=== PATIENT | female | born 1985 | race Asian ===

== ENCOUNTER 2017-09-18 21:05 | Inpatient (IN) | payer OTHER ==
[~2017-09-18] VITALS: Ht 165.1 cm; Wt 74.4 kg
[2017-09-18] MEDS ORDERED: PROMETHAZINE 25 MG/ML VIAL IVP PRN (21:40)
[2017-09-18] MEDS ORDERED: CARBOPROST 250 MCG/ML AMP IM PRN (21:40)
[2017-09-18] MEDS ORDERED: METHYLERGONOVINE 0.2 MG/ML AMP IM PRN (21:40)
[2017-09-18] MEDS ORDERED: NALBUPHINE HYDROCHLORIDE 10 MG/ML VIAL IVP PRN (21:40)
[2017-09-18] MEDS ORDERED: OXYTOCIN 10 UNITS/ML VIAL IM SCH (21:40)
[2017-09-18 22:36] LABS: BASOPHILS # (AUTO) 0.1 K/uL (0.00-0.22); BASOPHILS % (AUTO) 1.2 % (0.0-2.0); EOSINOPHILS # (AUTO) 0.1 K/uL (0-0.4); EOSINOPHILS % (AUTO) 0.9 % (0.0-4.0); HEMATOCRIT 35.6 % (36-48); HEMOGLOBIN 11.9 g/dL (12.0-16.0); LYMPHOCYTES # (AUTO) 1.2 K/uL (2.5-16.5); LYMPHOCYTES % (AUTO) 12.6 % (20.5-51.1); MEAN CORPUSCULAR HEMOGLOBIN 31 pg (27-31); MEAN CORPUSCULAR HGB CONC 33 g/dL (33-37); MEAN CORPUSCULAR VOLUME 93 fL (80-94); MONOCYTES # (AUTO) 0.6 K/uL (0.8-1.0); MONOCYTES % (AUTO) 6.2 % (1.7-9.3); NEUTROPHILS # (AUTO) 7.7 K/uL (1.8-7.7); NEUTROPHILS % (AUTO) 79.1 % (42.2-75.2); PLATELET COUNT (AUTO) 185 K/uL (140-450); RED BLOOD CELL COUNT(AUTO) 3.83 MIL/uL (4.20-5.40); RED CELL DISTRIBUTION WIDTH 12.5 % (11.6-13.7); WHITE BLOOD COUNT (AUTO) 9.7 K/uL (4.8-10.8)
[2017-09-18 22:54] LABS: ALBUMIN 3.1 g/dL (3.4-5.0); ANION GAP 15.2 (8-16); CARBON DIOXIDE 23.6 mmol/L (21-32); CREATININE 0.6 mg/dL (0.6-1.3); POTASSIUM 3.8 mmol/L (3.5-5.1); TOTAL BILIRUBIN 0.2 mg/dL (0.0-1.0)
[2017-09-18] MEDS ORDERED: OXYTOCIN 20 UNITS/LR PREMIX 1,000 ML IV ONE (23:29)
[2017-09-19 00:17] VITALS: BP 119/61
[2017-09-19] MEDS ORDERED: PREN-546 PO (00:31)
[2017-09-19] MEDS ORDERED: FERR-252 PO (00:32)
[2017-09-19] MEDS ORDERED: ROPIVACAINE 0.2%/NS PREMIX 250 ML EPI ONE (02:36)
--- NOTE | 2017-09-19 06:42 | NUR ---
PATIENT HAS BEEN SCREENED AND CATEGORIZED LOW NUTRITION RISK. PATIENT WILL BE SEEN WITHIN 7 DAYS OF ADMISSION. 09/25/17 JOHN RAMIREZ MS, RDN
[2017-09-19 09:43] LABS: APPEARANCE,URINE CLEAR (CLEAR); BILIRUBIN,URINE NEGATIVE (NEGATIVE); BLOOD, URINE NEGATIVE (NEGATIVE); COLOR,URINE YELLOW (YELLOW); LEUKOCYTE ESTERASE ,URINE NEGATIVE (NEGATIVE); NITRITE, URINE NEGATIVE (NEGATIVE); PH,URINE 6.5 (5.0-9.0); UGLUCOSE NEGATIVE (NEGATIVE)
[2017-09-19] MEDS ORDERED: TERBUTALINE 1 MG/ML VIAL SUBQ ONE (10:36)
[2017-09-19] MEDS ORDERED: OXYTOCIN 20 UNITS in LACTATED RINGERS 1,000 ML IV SCH ×2 (10:53→11:33)
[2017-09-19] MEDS ORDERED: oxyCODONE/APAP 5/325 MG 1 TAB TAB PO PRN (10:55)
[2017-09-19] MEDS ORDERED: TRIMETHOBENZAMIDE 200 MG/2 ML SYR IM PRN (10:55)
[2017-09-19] MEDS ORDERED: MEASLES, MUMPS, AND RUBELLA 1 VIAL SQVAC PRN (10:55)
[2017-09-19] MEDS ORDERED: TEMAZEPAM 15 MG CAP PO PRN (10:55)
[2017-09-19] MEDS ORDERED: METHYLERGONOVINE 0.2 MG/ML AMP IM PRN (10:55)
[2017-09-19] MEDS ORDERED: IBUPROFEN 800 MG TAB PO PRN (10:55)
[2017-09-19] MEDS ORDERED: METOCLOPRAMIDE 10 MG/2 ML INJ VIAL ONE (11:15)
[2017-09-19] MEDS ORDERED: ONDANSETRON 4 MG/2 ML VIAL ONE (11:15)
[2017-09-19] MEDS ORDERED: OXYTOCIN 10 UNITS/ML VIAL ONE (11:18)
[2017-09-19] MEDS ORDERED: TRIAMCINOLONE 40 MG/ML 5ML VIAL ONE (11:18)
[2017-09-19] MEDS ORDERED: MORPHINE PRES FREE 10 MG/10 ML AMP IV ONE (11:20)
[2017-09-19] MEDS ORDERED: diphenhydrAMINE 50 MG/ML VIAL IVP PRN (11:35)
[2017-09-19] MEDS ORDERED: NALOXONE 0.4 MG/ML VIAL IVP PRN ×2 (11:35)
[2017-09-19] MEDS ORDERED: ONDANSETRON 4 MG/2 ML VIAL IVP PRN (11:35)
[2017-09-19] MEDS: KETOROLAC 30 MG/ML VIAL IVP PRN (13:16)
[2017-09-19] MEDS ORDERED: DOCUSATE SOD/SENNA 50/8.6 MG 1 TAB PO SCH (21:00)
[2017-09-20] MEDS ORDERED: OXYTOCIN 10 UNITS/ML VIAL ONE (01:42)
[2017-09-20 07:42] LABS: BASOPHILS # (AUTO) 0.1 K/uL (0.00-0.22); BASOPHILS % (AUTO) 0.8 % (0.0-2.0); EOSINOPHILS # (AUTO) 0.1 K/uL (0-0.4); EOSINOPHILS % (AUTO) 0.6 % (0.0-4.0); HEMATOCRIT 31.8 % (36-48); HEMOGLOBIN 10.4 g/dL (12.0-16.0); LYMPHOCYTES # (AUTO) 0.8 K/uL (2.5-16.5); LYMPHOCYTES % (AUTO) 6.7 % (20.5-51.1); MEAN CORPUSCULAR HEMOGLOBIN 31 pg (27-31); MEAN CORPUSCULAR HGB CONC 33 g/dL (33-37); MEAN CORPUSCULAR VOLUME 93 fL (80-94); MONOCYTES # (AUTO) 0.7 K/uL (0.8-1.0); NEUTROPHILS # (AUTO) 10.5 K/uL (1.8-7.7); NEUTROPHILS % (AUTO) 85.9 % (42.2-75.2); PLATELET COUNT (AUTO) 159 K/uL (140-450); RED BLOOD CELL COUNT(AUTO) 3.41 MIL/uL (4.20-5.40); RED CELL DISTRIBUTION WIDTH 13.1 % (11.6-13.7); WHITE BLOOD COUNT (AUTO) 12.2 K/uL (4.8-10.8)
[2017-09-20] MEDS: SIMETHICONE 80 MG TAB.CHEW PO PRN ×2 (08:19→17:26)
[2017-09-20] MEDS: KETOROLAC 30 MG/ML VIAL IVP PRN (08:23)
[2017-09-21] MEDS: HYDROcodone/APAP 5/325 MG 1 TAB TAB PO PRN ×2 (03:27→13:52)
[2017-09-21] MEDS ORDERED: INFLUENZA VIRUS VACCINE QUAD 0.5 ML SYR IMVAC SCH (09:00)
[2017-09-22] MEDS: HYDROcodone/APAP 5/325 MG 1 TAB TAB PO PRN (06:05)
== END 2017-09-22 10:20 | disposition home or self-care (01) | DRG 540 ==
LOC: MLD 21:05 → MFCC 09-19 12:30
PROVIDERS: ADMIT Obstetrics & Gynecology; ATTEND Obstetrics & Gynecology
PROC: 3E0P3VZ Introduction of Hormone into Female Reproductive, Percutaneous Approach (ICD-10-PCS; 2017-09-19)
PROC: 10D00Z1 Extraction of Products of Conception, Low, Open Approach (ICD-10-PCS; principal; 2017-09-19 11:15)
PROC: 3E0234Z Introduction of Serum, Toxoid and Vaccine into Muscle, Percutaneous Approach (ICD-10-PCS; 2017-09-20)
PROC: 3E0234Z Introduction of Serum, Toxoid and Vaccine into Muscle, Percutaneous Approach (ICD-10-PCS; 2017-09-20)
DX: O76 Abnormality in fetal heart rate and rhythm complicating labor and delivery (principal); O32.4XX0 Maternal care for high head at term, not applicable or unspecified; O89.4 Spinal and epidural anesthesia-induced headache during the puerperium; O77.0 Labor and delivery complicated by meconium in amniotic fluid; Z37.0 Single live birth; Z3A.40 40 weeks gestation of pregnancy; Z23 Encounter for immunization
CPT/HCPCS: 36415; 80053; 81003; 85025; 86592; 86762; 86886; 86900; 86901; 87340; 90715; J0690; J1885; J2270; J2405; J2590; J2765; J2795; J3105; J3301; J7060; J7120